=== PATIENT | female | born 1970 | race Caucasian/White ===

== ENCOUNTER → 2017-03-16 16:53 | Outpatient (CLI) | payer BC | END | disposition home or self-care (01) | LOC: D.MAMMO 02-28 13:45 | DX: Z12.31 Encounter for screening mammogram for malignant neoplasm of breast (principal) ==

== ENCOUNTER → 2017-10-03 08:44 | Outpatient (CLI) | payer BC | END | disposition home or self-care (01) | LOC: D.NM 08:44 | DX: E04.1 Nontoxic single thyroid nodule (principal) ==

== ENCOUNTER 2018-01-10 05:50 | Day surgery (SDC) | payer BC ==
[2018-01-09 16:24] LABS: BASOPHILS 0.1 % (0-2); HEMATOCRIT 41.4 % (36.0-48.0); HEMOGLOBIN 14.3 g/dL (12-16); IMMATURE GRANULOCYTES 0.4 % (0-5); LYMPHOCYTES 29.1 % (15-50); MCH 32.2 pg (26.0-34.0); MCHC 34.5 g/dL (31.0-37.0); MCV 93.2 fL (80.0-100.0); MEAN PLATELET VOLUME 8.8 fL (7.4-10.4); MONOCYTES 7.6 % (2-11); NEUTROPHILS 61.8 % (40-80); PLATELET COUNT 340 10x3/uL (130-400); RBC 4.44 10x6/uL (4.00-5.40); RDW 11.7 % (11.5-14.5); WBC 9.8 10x3/uL (4.8-10.8)
[~2018-01-10] VITALS: Ht 160 cm; Wt 61.2 kg
--- NOTE | ~2018-01-10 | OP ---
PATIENT NAME: ALLEN JIN MEDICAL RECORD: [id number] :72 LOCATION:D.OPS ADMISSION DATE: SURGEON: MIKE NGUYỄN MD DATE OF OPERATION: 01/10/2018 PREOPERATIVE DIAGNOSES: 1. Menorrhagia. 2. Suspect endometrial polyps. POSTOPERATIVE DIAGNOSES: 1. Menorrhagia. 2. Suspect endometrial polyps. PROCEDURES: Hysteroscopy, dilation and curettage and polypectomy. SURGEON: Mike Nguyễn MD ANESTHESIA: General. INTRAVENOUS FLUIDS: Per anesthesia record. HYSTEROSCOPIC FLUID LOSS: Approximately 200 cc of 0.9 normal saline. COMPLICATIONS: None apparent. SPECIMENS: Endometrial curettings and endometrial polyp. PROCEDURE: The patient was taken to the operating room where general anesthesia was achieved without difficulty. The patient was then prepped and draped in normal sterile fashion in dorsal lithotomy position in the [facility]. The patient was then prepped and draped and the bladder was drained of approximately 100 cc of clear yellow urine. A Graves speculum was then placed into the vagina and the cervix was identified and grasped on its anterior lip with a single tooth tenaculum. The patient was sounded without resistance at this point and then dilated to approximately 6 mm. At this point, the hysteroscope was introduced into the endometrial canal. Several polyps were identified and hysteroscopic scissors and graspers were used to remove them at their base. Following removal of 2 significant sized polyps. Curettage was performed of all 4 quadrants without difficulty or resistance. Following curettage, the tenaculum was removed. Minimal bleeding was noted from the cervical os. The patient tolerated the procedure well and was transferred to postanesthesia recovery stable without incident. TRANSINT:[id number] Voice Confirmation ID: [id number] DOCUMENT ID: [id number] MIKE NGUỄYN MD at 1708 CC: [id number] DICTATION DATE: 01/26/18912 CH[employer] SCREEN TENDER: 01/26/1834 [facility] 01/10/[address] [address]
[~2018-01-10 05:50] MED LIST: ADIPEX-P37.5 M1 PO; ASCORBIC ACID500 MG PO; DEPAKOTE ER500 MG PO; DIAMOX250 MG; HYDROCODONE-APA1 TAB PO; IMITREX100 MG PO; PROBIOTIC BLEN1 EACH; SOMA350 MG PO; TOPAMAX100 MG PO; VISTARIL25 MG PO; VITAMIN D3400 UNI1 PO
[2018-01-10 06:25] VITALS: BP 118/68; Ht 160 cm; Wt 61.2 kg
[2018-01-10 06:30] LABS: HCG URINE NEGATIVE (NEGATIVE)
[2018-01-11 07:27] LABS: FOLLICLE STIMULATING HORMONE 3.6 mIU/mL (())
== END 2018-01-10 09:50 | disposition home or self-care (01) ==
LOC: D.OPS 05:50 → D.PAN 07:30 → D.OPS 09:50
PROVIDERS: Obstetrics & Gynecology
DX: N76.0 Acute vaginitis (principal); N84.0 Polyp of corpus uteri; N92.0 Excessive and frequent menstruation with regular cycle; E78.5 Hyperlipidemia, unspecified; Z01.812 Encounter for preprocedural laboratory examination

== ENCOUNTER 2018-06-06 08:00 | Outpatient (CLI) | payer BC ==
[2018-01-10 06:25] VITALS: BMI 23.9
== END 2018-06-06 23:59 | disposition home or self-care (01) ==
LOC: D.MRI 08:00
DX: M54.2 Cervicalgia (principal)

== ENCOUNTER 2019-12-26 08:35 | Day surgery (SDC) | payer BC ==
[2019-12-24 12:15] LABS: BASOPHILS 0.1 % (0-2); EOSINOPHILS 1.3 % (0-7); HEMATOCRIT 44.8 % (36.0-48.0); HEMOGLOBIN 14.6 g/dL (12-16); IMMATURE GRANULOCYTES 0.3 % (0-5); MCH 31.1 pg (26.0-34.0); MCHC 32.6 g/dL (31.0-37.0); MCV 95.3 fL (80.0-100.0); MEAN PLATELET VOLUME 9.1 fL (7.4-10.4); MONOCYTES 6.2 % (2-11); NEUTROPHILS 56.1 % (40-80); PLATELET COUNT 314 10x3/uL (130-400); RDW 12.2 % (11.5-14.5); WBC 7.1 10x3/uL (4.8-10.8)
[~2019-12-26] VITALS: Ht 160 cm; Wt 65.8 kg
[~2019-12-26 08:35] MED LIST changes: +AMOVIG IM; +BOTOX200 UNIT; +FLUTICASONE PRO16 GM NASAL; +HYDROCODON-ACET15 ML; +HYDROCODONE-IB1 EAC3; +IMITREX6 MG/0.51; +ZOFRAN8 MG
[2019-12-26] MEDS ORDERED: VOLTAREN100 GM TOPICAL (09:06)
[2019-12-26 09:10] VITALS: BP 139/96; Ht 160 cm; Wt 65.8 kg
[2019-12-26 09:19] LABS: HCG URINE NEGATIVE (NEGATIVE)
--- NOTE | 2019-12-26 12:14 | NUR ---
DC INSTRUCTIONS GIVEN TO PT. STATES UNDERSTANDING. PT VOIDED. KATIE VILLALTA RN DC'D IV CATH FULLY INTACT. PT LEFT UNIT VIA WC AT 1152
--- NOTE | 2019-12-30 07:51 | OP ---
PATIENT NAME: ALLEN JIN MEDICAL RECORD: [id number] :72 LOCATION:D.[facility] ADMISSION DATE: SURGEON: MIKE NGUYỄN MD DATE OF OPERATION: 12/26/2019 PREOPERATIVE DIAGNOSIS: Postmenopausal bleeding. POSTOPERATIVE DIAGNOSIS: Postmenopausal bleeding. PROCEDURE: Hysteroscopy, dilation and curettage. SURGEON: Mike Nguyễn MD ANESTHESIA: General endotracheal. INTRAVENOUS FLUIDS: Per anesthesia record. HYSTEROSCOPIC FLUID LOSS: Approximately 50 cc of 0.9 normal saline. SPECIMENS: Include endometrial curettings. COMPLICATIONS: None apparent. FINDINGS: Grossly normal proliferative-appearing endometrium with several small endometrial polyps. ESTIMATED BLOOD LOSS: Minimal. PROCEDURE IN DETAIL: The patient was taken to the operating room where general anesthesia was achieved without any difficulty. The patient was then prepped and draped in normal sterile fashion in the dorsal lithotomy position in the [facility]. Following draining approximately 100 cc of clear yellow urine from the bladder, a Graves speculum was placed into the vagina and the cervix was identified and grasped on its anterior lip with a single tooth tenaculum. The patient was sounded to approximately 9 cm. Careful dilation was performed to approximately 5-6 mm, at which point the hysteroscope was introduced into the cervix. Survey of the endometrial and endocervical canals was performed. At the point, further dilation of approximately 8-mm was performed to accommodate the #1 curette and curettage of the endometrial canal was performed. Following the curettage, the hysteroscope was reintroduced into the endometrial canal and found that the polyps were no longer apparent. The tenaculum and hysteroscope were removed. The patient tolerated procedure well, was transported to postanesthesia recovery stable without incident. TRANSINT:[id number] Voice Confirmation ID: [id number] DOCUMENT ID: [id number] MIKE NGUYỄN MD at 0751 CC: [id number] DICTATION DATE: 12/29/19 1018 BEAUTY SPECIALIST: 12/29/[address] [facility] 12/26/19 [place] [id number] [place] [id number]
== END 2019-12-26 11:52 | disposition home or self-care (01) ==
LOC: D.OPS 08:35 → D.PAN 09:30 → D.OPS 11:52
PROVIDERS: ATTEND Obstetrics & Gynecology
DX: N95.0 Postmenopausal bleeding (principal)